=== PATIENT | female | born 1960 | race Caucasian/White ===

== ENCOUNTER 2022-08-21 16:12 | Inpatient (IN) ==
--- NOTE | 2022-08-21 16:56 | XRay Report ---
XR chest 1V portable CLINICAL HISTORY: Atypical chest pain. COMPARISON STUDY: Chest radiograph October 01, 2019. Chest CT October 10, 2016. FINDINGS: There is no pneumothorax or pleural effusion. Cardiomegaly is unchanged. Slight interstitia l prominence is noted. There is no consolidation to suggest pneumonia. A few linear densities favor a telectasis. IMPRESSION: Stable cardiomegaly. Interstitial prominence which may reflect pulmonary vascular conges tion. ACT 112: Negative or not required by law. Electronically signed by: Keanu Valverde M.D. 08/21/2022 4:55 PM
[2022-08-21 17:19] LABS: Basophils # (auto) 0.04 K/uL (0-0.2); Basophils % (auto) 0.3 %; Eosinophils # (auto) 0.01 K/uL (0-0.50); Eosinophils % (auto) 0.1 %; Hemoglobin 14.3 g/dl (12.0-16.0); Immature Granulocytes # (auto) 0.06 K/uL (0.00-0.02); Immature Granulocytes % (auto) 0.5 %; Lymphocytes # (auto) 1.89 K/uL (1.2-3.4); Mean Corpuscular Hemoglobin 30.2 pg (25.0-34.0); Mean Corpuscular Hgb Conc 34.9 g/dL (32.0-36.0); Mean Corpuscular Volume 86.5 fL (80.0-100.0); Mean Platelet Volume 10.3 fL (9.4-12.3); Monocytes # (auto) 0.48 K/uL (0.24-0.82); Monocytes % (auto) 3.8 %; Neutrophils # (auto) 10.14 K/uL (1.4-6.5); Neutrophils % (auto) 80.3 %; Platelet Count 281 K/uL (130-400); RDW Coefficient of Variation 13.2 % (11.5-14.5); RDW Standard Deviation 41.5 fL (36.4-46.3); Red Blood Count 4.74 M/uL (3.93-5.22); White Blood Count 12.62 K/ul (4.8-10.8)
[2022-08-21 17:31] LABS: Partial Thromboplastin Ratio 0.9; Partial Thromboplastin Time 25.2 Seconds (21.0-31.0); Prothrombin Time 10.4 Seconds (9.0-12.0)
[2022-08-21 17:51] LABS: Troponin I High Sensitivity 5.2 pg/ml (0-14)
[2022-08-21 17:56] LABS: Appearance Urine Clear (Clear); Bilirubin Urine Negative (Negative); Blood Urine Negative (Negative); Color Urine Yellow; Glucose Urine UA Negative (Negative); Ketones Urine Negative (Negative); Leukocyte Esterase Urine Negative (Negative); Nitrite Urine Negative (Negative); Protein Urine Negative (Negative); Specific Gravity Urine 1.009 (1.000-1.030); Urobilinogen Urine Negative (Negative)
[2022-08-21 18:00] LABS: Alanine Aminotransferase 18 U/L (7-52); Albumin Globulin Ratio 1.4 (0.9-2); Albumin Level 4.1 gm/dl (3.4-5.0); Alkaline Phosphatase 86 U/L (34-104); Anion Gap 8 (3-11); Aspartate Aminotransferase 16 U/L (13-39); BUN Creatinine Ratio 16.9 (10-20); Bilirubin,Total 1.4 mg/dl (0.2-1.0); Blood Urea Nitrogen 11 mg/dl (6-23); Calcium 9.2 mg/dl (8.5-10.1); Carbon Dioxide 26 mmol/L (21-32); Chloride 99 mmol/L (98-107); Est GFR (African American) 110.3 ml/min; Est GFR (Non-African American) 95.2 ml/min; Glucose 203 mg/dl (70-99(Fasting)); Lipase 16 U/L (11-82); Sodium 133 mmol/L (136-145); Total Protein 7.1 gm/dl (6.0-8.3)
[2022-08-21] MEDS ORDERED: ONDANSETRON INJ 2 MG/ML 2 ML VIAL IV STA (18:20)
[2022-08-21] MEDS ORDERED: OPTIRAY 350 100ml IV ONE (19:22)
--- NOTE | 2022-08-21 19:48 | Emergency Department Note ---
Impression & Plan SBO (small bowel obstruction) ED Provider Note CHIEF COMPLAINT: Abdominal pain x2 days HISTORY OF PRESENT ILLNESS: This 61-year-old female patient presents to the emergency department with complaints of mid abdominal pain that wraps around to the back bilaterally. The patient states the pain began 2 to 3 days ago and has been persistent. She has been nauseated and not able to tolerate much in the way of food or fluids. She has been vomiting. The patient has been taking 1000 mg of Tylenol every 4 hours to help with the pain. She feels as though she needs to have a bowel movement but has been unable to several enemas. Patient states diverticulitis does run in her family therefore she has been trying to maintain a clear liquid diet. She denies any difficulty with urination, blood in the stool or the emesis. She has not had any significant fevers. She has had one abdominal surgery in the past which was a hernia repair many years ago. REVIEW OF SYSTEMS: A review of systems was performed with positives and pertinent negatives listed in the history of present illness. 10 systems were reviewed and are otherwise negative. ALLERGIES: see below MEDICATIONS: see below PMH: see below SOCIAL HISTORY: see below DDx: Appendicitis, PID, infections, diverticulitis, UTI, obstruction, mesenteric ischemia, aortic pathology, inflammatory bowel disease, renal colic, PUD, pancreatitis, biliary pathology, hernia, volvulus, constipation, as well as other pathologies. PHYSICAL EXAM: Vital signs reviewed. General: Well-appearing 61 yo female, obese, in no significant distress. HEENT: No scleral icterus, PERRLA, neck supple. Atraumatic. Cardiovascular: Regular rate and rhythm, no extra sounds. Pulmonary: Clear to auscultation bilaterally, normal work of breathing. Abdomen: Soft, obese, diffusely tender, + tympany, nondistended, positive bowel sounds. Musculoskeletal: Atraumatic, no peripheral edema. Neurologic: Patient awake alert and oriented x 3, speech is clear Skin: Warm, dry, no rash EMERGENCY DEPARTMENT COURSE/MDM: Patient evaluated and appeared to be in some discomfort. IV access was obtained and laboratory work was drawn. The patient was hydrated with normal saline solution. She did receive IV Zofran for nausea. CT imaging of the abdomen pelvis was performed and reveals evidence of small bowel obstruction. Patient is not currently vomiting and does seem to be under good control with her n.p.o. status and IV hydration. General surgery was contacted and the patient was discussed with the medicine service for admission. MONITORING: An order for cardiac monitoring was placed and the patient is noted to be in a NSR at 68 beats per minute. RADIOLOGY: see below EKG: Normal sinus rhythm at 74 bpm, low voltage QRS, nonspecific T wave abnormality anterior leads. QTC is 437. Normal ST segments. No significant change from previous dated April 07, 2019. DISPOSITION: Admission Past Med/Surg History Medical History CAD (coronary artery disease) Depression with anxiety GERD (gastroesophageal reflux disease) HTN (hypertension) Hyperlipidemia Hypothyroidism Osteoarthritis Scoliosis Severe obstructive sleep apnea Stress incontinence Thyroid nodule Type 2 diabetes mellitus Surgical History History of appendectomy History of arthroscopy RT KNEE History of cardiac cath History of section History of colonoscopy History of elbow surgery RT History of herniorrhaphy INCISIONAL HERNIA (FROM SCAR) History of partial hysterectomy Hx of removal of cyst 11/12/18 in OR upper and lower back. Performed by Dr. Rachid Maldonado. Family History Uncle Family history of diabetes mellitus MATERNAL Stroke Uncle Family hx of colon cancer MATERNAL Mother Myocardial infarction Hypothyroidism Hypertension Colorectal cancer Father Alzheimer disease Parkinsons disease Dementia Grandfather (Paternal) Brain tumor Grandfather (Maternal) Bone cancer Sister Hypothyroidism Sister Hypothyroidism Breast cancer Aunt Breast cancer Denies family history of Ovarian cancer Prostate cancer Social History Smoking Status: Never smoker Second Hand Exposure: No; Hx Alcohol Use: No Hx Substance Use: No Preferred Language: Cook Islander Communication Ability: Effective Visual Impairment: No Limitations Hearing Ability: Normal Hoisting Machine Operator Required: No Beliefs That Will Affect Care: Methodist Methodist Beliefs: Sandro/Mennonite. marital status: Current Living Situation: Family current occupational status: unemployed Feels Safe at Home: Yes Childhood Exposure to Second-Hand Smoke: No Dental Care, Regularly: No Physical Activity Frequency: 1-2 Times per Week Seatbelt Use: always Sunscreen Use: Yes Assistive Devices: None Allergies Allergies Allergy/AdvReac Type Severity Reaction Status Date / Time pollen extracts Allergy Unknown Unknown Verified 08/21/22 20:27 tomato Allergy Unknown Unknown Verified 08/21/22 20:27 No Known Drug Allergies Allergy nkda Verified 08/21/22 20:27 Dust Allergy Unknown Unknown Uncoded 08/21/22 20:27 Home Meds Home Medications Medication Instructions Recorded Confirmed aspirin 81 mg tablet,delayed 81 mg PO DAILY 04/06/19 08/21/22 release (Aspir-) insulin NPH isoph U-100 human 100 10 - 15 unit subcut BID 03/21/22 08/21/22 unit/mL subcutaneous suspension (Novolin N NPH U-100 Insulin isophane) levothyroxine 125 mcg tablet 125 mcg PO DAILY 08/21/22 08/21/22 Previous Rx's Medication Instructions Recorded nitroglycerin 0.4 mg sublingual 0.4 mg sublingual Q5M PRN chest 07/26/20 tablet pain #30 tabs celecoxib 100 mg capsule (Celebrex) 100 mg PO BID #60 caps 09/28/21 rosuvastatin 20 mg tablet 20 mg PO DAILY #90 tabs 11/10/21 hydrochlorothiazide 12.5 mg tablet 12.5 mg PO DAILY #30 tabs 04/10/22 furosemide 20 mg tablet 20 mg PO QAM PRN edema #30 tabs 05/09/22 metformin 500 mg tablet 1,000 mg PO BID #120 tabs 05/18/22 Results & Data (ED) Vital Signs Vital Signs - 24 hr 08/21/22 16:28 08/21/22 19:34 08/21/22 19:37 Temperature 36.8 C Temperature Source Oral Pulse Rate 72 Pulse Rate [Apical] 68 Pulse Rhythm Regular Pulse Strength Normal Respiratory Rate 24 18 Respiratory Effort / Characteristics Non-Labored Spontaneous Respiratory Depth Normal Normal Blood Pressure 139/99 Blood Pressure [Right Arm] 157/71 H Blood Pressure Mean 112 Blood Pressure Mean [Right Arm] 99 Pulse Oximetry 96 93 93 Oxygen Delivery Method Room Air Room Air Room Air Sepsis Recent Fever Within 48 Hours No Sepsis New/Unexplained Change in Mental Status No Sepsis Action Taken by Nursing No Action Required Home Medications Current Medication List: was personally reviewed by me Laboratory Data Attestation: I reviewed the patient's lab results. Result diagrams: 08/22/22 08:45 08/23/22 06:40 Lab Results 08/21/22 08/21/22 08/21/22 Range/Units 17:00 17:00 17:00 WBC 12.62 H (4.8-10.8) K/ul RBC 4.74 (3.93-5.22) M/uL Hgb 14.3 (12.0-16.0) g/dl Hct 41.0 (34.1-44.9) % MCV 86.5 (80.0-100.0) fL MCH 30.2 (25.0-34.0) pg MCHC 34.9 (32.0-36.0) g/dL RDW Std Deviation 41.5 (36.4-46.3) fL RDW Coeff of Chetna 13.2 (11.5-14.5) % Plt Count 281 (130-400) K/uL MPV 10.3 (9.4-12.3) fL Immature Gran % (Auto) 0.5 % Neut % (Auto) 80.3 % Lymph % (Auto) 15.0 % [place] % (Auto) 3.8 % Eos % (Auto) 0.1 % Baso % (Auto) 0.3 % Neut # (Auto) 10.14 H (1.4-6.5) K/uL Lymph # (Auto) 1.89 (1.2-3.4) K/uL [place] # (Auto) 0.48 (0.24-0.82) K/uL Eos # (Auto) 0.01 (0-0.50) K/uL Baso # (Auto) 0.04 (0-0.2) K/uL Immature Gran # (Auto) 0.06 H (0.00-0.02) K/uL PT 10.4 (9.0-12.0) Seconds INR 1.0 (0.9-1.1) APTT 25.2 (21.0-31.0) Seconds PTT Ratio 0.9 Sodium 133 L (136-145) mmol/L Potassium 4.0 (3.5-5.1) mmol/L Chloride 99 (98-107) mmol/L Carbon Dioxide 26 (21-32) mmol/L Anion Gap 8 (3-11) BUN 11 (6-23) mg/dl Creatinine 0.65 (0.6-1.2) mg/dl Est Cr Clr Drug Dosing Not Reportable Est GFR ( Amer) 110.3 ml/min Est GFR (Non-Af Amer) 95.2 ml/min BUN/Creatinine Ratio 16.9 (10-20) Glucose 203 H (70-99(Fasting)) mg/dl Calcium 9.2 (8.5-10.1) mg/dl Total Bilirubin 1.4 H (0.2-1.0) mg/dl AST 16 (13-39) U/L ALT 18 (7-52) U/L Alkaline Phosphatase 86 (34-104) U/L Troponin I High Sens 5.2 (0-14) pg/ml Total Protein 7.1 (6.0-8.3) gm/dl Albumin 4.1 (3.4-5.0) gm/dl Globulin 3.0 (2.5-4.0) gm/dl Albumin/Globulin Ratio 1.4 (0.9-2) Lipase 16 (11-82) U/L Urine Color Urine Appearance (Clear) Urine pH (4.5-7.5) Ur Specific [place] (1.000-1.030) Urine Protein (Negative) Urine Glucose (UA) (Negative) Urine Ketones (Negative) Urine Blood (Negative) Urine Nitrite (Negative) Urine Bilirubin (Negative) Urine Urobilinogen (Negative) Ur Leukocyte Esterase (Negative) SARS-CoV-2, RNA, NAAT (NEGATIVE) 08/21/22 08/21/22 Range/Units 17:44 20:02 WBC (4.8-10.8) K/ul RBC (3.93-5.22) M/uL Hgb (12.0-16.0) g/dl Hct (34.1-44.9) % MCV (80.0-100.0) fL MCH (25.0-34.0) pg MCHC (32.0-36.0) g/dL RDW Std Deviation (36.4-46.3) fL RDW Coeff of Chetna (11.5-14.5) % Plt Count (130-400) K/uL MPV (9.4-12.3) fL Immature Gran % (Auto) % Neut % (Auto) % Lymph % (Auto) % [place] % (Auto) % Eos % (Auto) % Baso % (Auto) % Neut # (Auto) (1.4-6.5) K/uL Lymph # (Auto) (1.2-3.4) K/uL [place] # (Auto) (0.24-0.82) K/uL Eos # (Auto) (0-0.50) K/uL Baso # (Auto) (0-0.2) K/uL Immature Gran # (Auto) (0.00-0.02) K/uL PT (9.0-12.0) Seconds INR (0.9-1.1) APTT (21.0-31.0) Seconds PTT Ratio Sodium (136-145) mmol/L Potassium (3.5-5.1) mmol/L Chloride (98-107) mmol/L Carbon Dioxide (21-32) mmol/L Anion Gap (3-11) BUN (6-23) mg/dl Creatinine (0.6-1.2) mg/dl Est Cr Clr Drug Dosing Est GFR ( Amer) ml/min Est GFR (Non-Af Amer) ml/min BUN/Creatinine Ratio (10-20) Glucose (70-99(Fasting)) mg/dl Calcium (8.5-10.1) mg/dl Total Bilirubin (0.2-1.0) mg/dl AST (13-39) U/L ALT (7-52) U/L Alkaline Phosphatase (34-104) U/L Troponin I High Sens (0-14) pg/ml Total Protein (6.0-8.3) gm/dl Albumin (3.4-5.0) gm/dl Globulin (2.5-4.0) gm/dl Albumin/Globulin Ratio (0.9-2) Lipase (11-82) U/L Urine Color Yellow Urine Appearance Clear (Clear) Urine pH 7.0 (4.5-7.5) Ur Specific [place] 1.009 (1.000-1.030) Urine Protein Negative (Negative) Urine Glucose (UA) Negative (Negative) Urine Ketones Negative (Negative) Urine Blood Negative (Negative) Urine Nitrite Negative (Negative) Urine Bilirubin Negative (Negative) Urine Urobilinogen Negative (Negative) Ur Leukocyte Esterase Negative (Negative) SARS-CoV-2, RNA, NAAT POSITIVE A* (NEGATIVE) Administered Medications Discontinued Medications Heparin Sodium (Porcine) (Heparin Sod 5,000 Unit/0.5 Ml Vial) 5,000 units SQ Q12 MARY Stop: 09/21/22 20:59 Last Admin: 08/23/22 08:58 Dose: 5,000 units Documented By: Admin: 08/22/22 22:38 Dose: 5,000 units Documented By: LANRE Acetaminophen (Ofirmev) 1,000 mg in 100 mls @ 400 mls/hr IV Q8H PRN PRN Reason: Pain Stop: 08/24/22 22:43 Last Infusion: 08/22/22 23:15 Dose: 0 mls/hr Documented By: Admin: 08/22/22 22:53 Dose: 400 mls/hr Documented By: LANRE Lactated Ringer's (Lr) 1,000 mls @ 125 mls/hr IV .Q8H [facility] Stop: 09/20/22 22:43 Last Admin: 08/22/22 15:59 Dose: Not Given Documented By: Infusion: 08/22/22 15:28 Dose: 0 mls/hr Documented By: Admin: 08/22/22 06:42 Dose: 125 mls/hr Documented By: Infusion: 08/22/22 06:42 Dose: 125 mls/hr Documented By: Admin: 08/21/22 23:33 Dose: 125 mls/hr Documented By: LANRE Insulin Aspart (Insulin Aspart Per Unit) 0 units SC Q6 [facility] Stop: 09/20/22 22:59 Last Admin: 08/22/22 17:48 Dose: Not Given Documented By: Admin: 08/22/22 12:38 Dose: 1 units Documented By: KEYANNA Co-signed By: KATELIN Admin: 08/22/22 06:47 Dose: Not Given Documented By: LANRE Co-signed By: ERI Admin: 08/22/22 00:16 Dose: 2 units Documented By: LANRE Co-signed By: PATRICIA Insulin Aspart (Insulin Aspart Per Unit) 0 units SC ACHS [facility] Stop: 09/21/22 22:30 Last Admin: 08/23/22 12:53 Dose: 3 units Documented By: KEYANNA Co-signed By: OLMAN Admin: 08/23/22 08:57 Dose: 3 units Documented By: KEYANNA Co-signed By: [facility] Admin: 08/22/22 23:14 Dose: Not Given Documented By: LANRE Co-signed By: YELENA Insulin Glargine (Lantus Per Unit Charge) 5 units SQ BID [facility] Stop: 09/20/22 22:59 Last Admin: 08/23/22 08:58 Dose: 5 units Documented By: KEYANNA Co-signed By: SHELLIE Admin: 08/22/22 22:37 Dose: 5 units Documented By: LANRE Co-signed By: YELENA Admin: 08/22/22 09:00 Dose: 5 units Documented By: KEYANNA Co-signed By: DELFINO Admin: 08/22/22 00:17 Dose: 5 units Documented By: LANRE Co-signed By: PATRICIA Ioversol (Optiray 350 100ml) 84 ml IV ONCE ONE Stop: 08/21/22 19:23 Last Admin: 08/21/22 19:22 Dose: 84 ml Documented By: HARVEY Levothyroxine Sodium (Levothyroxine Sodium 125 Mcg Tablet) 125 mcg PO DAILYBB [facility] Stop: 09/21/22 06:29 Last Admin: 08/23/22 06:28 Dose: 125 mcg Documented By: Admin: 08/22/22 06:40 Dose: 125 mcg Documented By: LANRE Morphine Sulfate (Morphine Sulfate 2 Mg/Ml [place]) 1 mg IV Q4H PRN PRN Reason: Pain 8+/10 Stop: 09/04/22 22:43 Last Admin: 08/21/22 23:55 Dose: 1 mg Documented By: LANRE Ondansetron HCl (Ondansetron Inj 2 Mg/Ml 2 Ml Vial) 4 mg IV NOW STA Stop: 08/21/22 18:21 Last Admin: 08/21/22 18:46 Dose: 4 mg Documented By: ETHAN Ondansetron HCl (Ondansetron Inj 2 Mg/Ml 2 Ml Vial) 4 mg IV Q6H PRN PRN Reason: Nausea And Vomiting Stop: 09/20/22 22:43 Last Admin: 08/21/22 23:55 Dose: 4 mg Documented By: LANRE Imaging Data Radiologist's Impression: Chest X-Ray 08/21/22 16:37 XR chest 1V portable CLINICAL HISTORY: Atypical chest pain. COMPARISON STUDY: Chest radiograph October 01, 2019. Chest CT October 10 16. FINDINGS: There is no pneumothorax or pleural effusion. Cardiomegaly is unchanged. Slight interstitial prominence is noted. There is no consolidation to suggest pneumonia. A few linear densities favor atelectasis. IMPRESSION: Stable cardiomegaly. Interstitial prominence which may reflect pulmonary vascular congestion. ACT 112: Negative or not required by law. Electronically signed by: Keanu Valverde M.D. 08/21/2022 4:55 PM Abdomen/Pelvis CT 08/21/22 18:[address] WITH IV CONTRAST CT DOSE: 2880.04 mGycm HISTORY: Generalized abdominal pain. Bowel obstruction TECHNIQUE: Multiaxial CT images of the abdomen and pelvis were performed following the use of intravenous contrast. A dose lowering technique was utilized adhering to the principles of ALARA. COMPARISON STUDY: None. FINDINGS: There is suboptimal evaluation of the abdomen and pelvis due to the patient's large body habitus abutting the gantry. The lung bases are clear. No pneumoperitoneum. No pneumatosis. No suspicious lytic or blastic osseous lesions. There are few small midline lower abdominal wall fat-containing hernias. The bladder and uterus are unremarkable. There is trace pelvic free fluid. Colonic diverticulosis. No evidence for acute diverticulitis. Multiple dilated gas and fluid-filled loops of small bowel seen throughout the abdomen. These measure up to 4.5 cm in diameter. There are decompressed distal bowel loops. The exact transition point is difficult to identify due to the streak artifact but likely resides within the left lower quadrant on image 395 at the expected location of the distal jejunum. This is consistent with a small bowel obstruction. No retroperitoneal lymphadenopathy. The liver, adrenal glands, pancreas, and gallbladder are unremarkable. Calcified plaque within the normal caliber abdominal aorta. Multiple bilateral peripelvic renal cysts are noted. No hydronephrosis. A few punctate calcified granulomas within the spleen. IMPRESSION: 1. Multiple dilated gas and fluid-filled loops of small bowel seen throughout the abdomen with the transition point likely located within the left lower quadrant consistent with a small bowel obstruction. 2. Trace pelvic free fluid. 3. Colonic diverticulosis. No evidence for acute diverticulitis. 4. Additional findings as described above. ACT 112: Negative or not required by law. Electronically signed by: Partha Montana M.D. 08/21/2022 7:46 PM Blood Pressure Blood Pressure Findings: Elevated blood pressure Blood Pressure Disposition: further management by hospitalist Discharge Plan Visit Data Chief Complaint: Abdominal Pain Stated Complaint: STOMACH PAIN, FEVER,BACK PAIN, VOMIT ED Provider: Heidi Carrington Discharge Problem: SBO (small bowel obstruction) Patient Disposition: Admitted As Inpatient Discharge Instructions Interventions: ED Discharge Assessment Last Done: 08/21/22 22:22
--- NOTE | 2022-08-21 19:49 | CT Scan Report ---
ABDOMEN AND PELVIS CT WITH IV CONTRAST CT DOSE: 2880.04 mGycm HISTORY: Generalized abdominal pain. Bowel obstruction TECHNIQUE: Multiaxial CT images of the abdomen and pelvis were performed following the use of intrave nous contrast. A dose lowering technique was utilized adhering to the principles of ALARA. COMPARISON STUDY: None. FINDINGS: There is suboptimal evaluation of the abdomen and pelvis due to the patient's large body mills bitus abutting the gantry. The lung bases are clear. No pneumoperitoneum. No pneumatosis. No suspicio us lytic or blastic osseous lesions. There are few small midline lower abdominal wall fat-containing hernias. The bladder and uterus are unremarkable. There is trace pelvic free fluid. Colonic diverticu losis. No evidence for acute diverticulitis. Multiple dilated gas and fluid-filled loops of small bow el seen throughout the abdomen. These measure up to 4.5 cm in diameter. There are decompressed distal bowel loops. The exact transition point is difficult to identify due to the streak artifact but like ly resides within the left lower quadrant on image 395 at the expected location of the distal jejunum . This is consistent with a small bowel obstruction. No retroperitoneal lymphadenopathy. The liver, a drenal glands, pancreas, and gallbladder are unremarkable. Calcified plaque within the normal caliber abdominal aorta. Multiple bilateral peripelvic renal cysts are noted. No hydronephrosis. A few punct ate calcified granulomas within the spleen. IMPRESSION: 1. Multiple dilated gas and fluid-filled loops of small bowel seen throughout the abdomen with the tr ansition point likely located within the left lower quadrant consistent with a small bowel obstructio n. 2. Trace pelvic free fluid. 3. Colonic diverticulosis. No evidence for acute diverticulitis. 4. Additional findings as described above. ACT 112: Negative or not required by law. Electronically signed by: Partha Montana M.D. 08/21/2022 7:46 PM
--- NOTE | 2022-08-21 20:27 | Surgery Consultation ---
Date of Consultation August 21, 2022 Assessment & Plan (1) Small bowel obstruction: The patient is being mated on the hospitalist service. We recommend proceeding as follows: Provide analgesics provide antiemetics Implement n.p.o. status Provide IV fluid for hydration The patient has not had any emesis in approximately 6 hours. Due to this fact and the fact that her abdominal exam is essentially benign at this time I feel we can withhold on placing NG tube at this time, however I did discuss with the patient that if she has any further emesis placing an NG tube will may be required. Explained to the patient the nature of small bowel obstruction and that we will not build advance her diet until she has further improvement of her abdominal exam and her bowel function returns. I did explain to her that once we are able to advance her diet we will likely do so beginning with clear liquid s and the timing of this is yet to be determined Additional recommendations be forthcoming based on her clinical course as it unfolds History of Present Illness Reason for Consultation: Small bowel obstruction History of Present Illness This is a 61-year-old female who presented to [facility] emergency department secondary to abdominal pain that began yesterday. She notes that she has generalized abdominal pain without modifying factors. She has had associated nausea and vomiting. Patient notes that she has had prior abdominal surgery in the form of a ventral hernia performed in 2005 and she believes this was done at [facility]. Patient says that her most recent bowel movement was approximately 3 days ago but she is unsure of the exact timing. She notes that since her symptomatology began she has not been able to pass any flatus. She does note that her most recent emesis was approximately 2:00 PM today when she drank some juice. In the emergency department the patient had labs and imaging which I independent reviewed. Chest x-ray did not show any evidence of pneumonia. Patient underwent a CT scan of the abdomen pelvis that showed multiple dilated gas and fluid-filled loops of small bowel concerning for a small bowel obstruction. There was a transition point noted in the left lower quadrant. Several small lower abdominal wall fat-containing hernias were noted. There is no evidence of pneumoperitoneum or pneumatosis. Labs include a CBC her white blood cell count was 12.6. Hemoglobin, hematocrit, and platelet count were normal. Chemistry profile showed sodium was 133. Potassium, BUN, and creatinine were normal. Patient did have an elevated total bilirubin at 1.4 but transaminases, alkaline phosphatase, and lipase were nonelevated urinalysis was not indicative of infection. A COVID test was noted to be negative. At the time of my interview she was resting comfortably in bed and she was in no distress. Allergies Allergy/AdvReac Type Severity Reaction Status Date / Time pollen extracts Allergy Unknown Unknown Verified 08/21/22 20:27 tomato Allergy Unknown Unknown Verified 08/21/22 20:27 No Known Drug Allergies Allergy nkda Verified 08/21/22 20:27 Dust Allergy Unknown Unknown Uncoded 08/21/22 20:27 Home Medications Medication Instructions Recorded Confirmed Type aspirin 81 mg tablet,delayed 81 mg PO DAILY 04/06/19 08/21/22 History release (Aspir-) nitroglycerin 0.4 mg sublingual 0.4 mg sublingual Q5M PRN chest 07/26/20 08/21/22 Rx tablet pain #30 tabs celecoxib 100 mg capsule (Celebrex) 100 mg PO BID #60 caps 09/28/21 08/21/22 Rx rosuvastatin 20 mg tablet 20 mg PO DAILY #90 tabs 11/10/21 08/21/22 Rx insulin NPH isoph U-100 human 100 10 - 15 unit subcut BID 03/21/22 08/21/22 History unit/mL subcutaneous suspension (Novolin N NPH U-100 Insulin isophane) hydrochlorothiazide 12.5 mg tablet 12.5 mg PO DAILY #30 tabs 04/10/22 08/21/22 Rx furosemide 20 mg tablet 20 mg PO QAM PRN edema #30 tabs 05/09/22 08/21/22 Rx metformin 500 mg tablet 1,000 mg PO BID #120 tabs 05/18/22 08/21/22 Rx levothyroxine 125 mcg tablet 125 mcg PO DAILY 08/21/22 08/21/22 History Patient History Medical History CAD (coronary artery disease) Depression with anxiety GERD (gastroesophageal reflux disease) HTN (hypertension) Hyperlipidemia Hypothyroidism Osteoarthritis Scoliosis Severe obstructive sleep apnea Stress incontinence Thyroid nodule Type 2 diabetes mellitus Surgical History History of appendectomy History of arthroscopy RT KNEE History of cardiac cath History of section History of colonoscopy History of elbow surgery RT History of herniorrhaphy INCISIONAL HERNIA (FROM SCAR) History of partial hysterectomy Hx of removal of cyst 11/12/18 in OR upper and lower back. Performed by Dr. Rachid Maldonado. Family History Uncle Family history of diabetes mellitus MATERNAL Stroke Uncle Family hx of colon cancer MATERNAL Mother Myocardial infarction Hypothyroidism Hypertension Colorectal cancer Father Alzheimer disease Parkinsons disease Dementia Grandfather (Paternal) Brain tumor Grandfather (Maternal) Bone cancer Sister Hypothyroidism Sister Hypothyroidism Breast cancer Aunt Breast cancer Denies family history of Ovarian cancer Prostate cancer Social History Smoking Status: Never smoker Second Hand Exposure: No; Do You Dip or Chew Tobacco: No; Tobacco Cessation Education Requested by Patient: No Hx Alcohol Use: No Hx Substance Use: No Preferred Language: Ukrainian Communication Ability: Effective Visual Impairment: No Limitations Hearing Ability: Normal Financial Institution Treasurer Required: No Beliefs That Will Affect Care: Orthodox Orthodox Beliefs: Sandro/Mennonite. marital status: Current Living Situation: Family current occupational status: unemployed Other Information That Helps Us Care for You: No Feels Safe at Home: Yes Safety Concerns: Feels Safe At This Time Childhood Exposure to Second-Hand Smoke: No Dental Care, Regularly: No Physical Activity Frequency: 1-2 Times per Week Seatbelt Use: always Sunscreen Use: Yes Assistive Devices: Denture - Upper and Glasses Review of Systems Constitutional: no fever and no chills Eyes: + corrective lenses Ear, Nose, Mouth, Throat: no ear pain Respiratory: no cough and no dyspnea Cardiovascular: no chest pain Gastrointestinal: + abdominal pain, + nausea and + vomiting Genitourinary: no dysuria Musculoskeletal: no back pain Integumentary: no rash Neurologic: no localized weakness Physical Exam Constitutional: WD/WN, vitals as above + obese Eyes: no corneal abnormality Wears glasses ENMT: Ears: no hearing impairment and no external ear abnormality Mouth: no oropharynx abnormality Neck: trachea midline Respiratory: normal respiratory effort; no respiratory distress and no labored breathing Cardiovascular: Rate/Rhythm: regular rate and regular rhythm Gastrointestinal (Abdomen): Abdomen is rotund but soft. It is nondistended and nonrigid. There is no tympany to percussion. Bowel sounds are present. Patient had a well-healed midline incision just above the symphysis pubis. At the time of my exam the patient had minimal to no tenderness with palpation and there is no rebound tenderness or guarding. Musculoskeletal: No calf tenderness Skin: no rashes Neurologic: moves all extremities Psychiatric: A+Ox3, euthymic affect Results & Data ([facility]) Vital Signs (Past 12 Hours) Vital Signs Temp Pulse Pulse Resp BP BP Pulse Ox 08/21/22 19:37 93 08/21/22 19:34 68 18 157/71 H 93 08/21/22 16:28 36.8 C 72 24 139/99 96 O2 Del Method 08/21/22 19:37 Room Air 08/21/22 19:34 Room Air 08/21/22 16:28 Room Air PG Care Time/CCT Total # of Minutes Spent Total Time Spent with Patient: Total time spent is greater than 50% in coordination of care (as documented) at patient's floor/unit and/or counseling patient: Coding Level of Care Code 69973 Inpt Consult Level 5 Diagnoses Small bowel obstruction K56.609
--- NOTE | 2022-08-21 20:36 | History & Physical Report ---
Date of Service August 21, 2022 Assessment & Plan (1) Small bowel obstruction: Plan: 61 yo F with PMH IDDM2, morbid obesity, HTN, HLD, hypothyroidism, CAD, GERD, previous hernia repair presenting with abdominal pain. -General surgery consulted- recommending conservative management at present -Not placing NG tube for now -NPO except medications -LR at 125 cc/hr -Last echocardiogram 2018- EF 50-55% -Euvolemic status at this time -Measure I's and O's -Zofran PRN for nausea -Pain control with Tylenol 1000 mg IV q8h PRN, morphine 1 mg IV q4h PRN (2) COVID: Plan: -Pt with stable respiratory status at this time, saturating well on RA -Will defer starting remdesivir and/or dexamethasone at present -Supplemental O2 as needed, goal > 93% (3) Uncontrolled type 2 diabetes mellitus: Plan: -Last A1C of 7.0% in 12/2021 -Hold home metformin, NPH -Lantus 5u BID, ISS ordered (4) Hyperlipidemia: Plan: -Continue home rosuvastatin (5) HTN (hypertension): Plan: -Holding home thiazide -Monitor BP, stable at this time (6) Hypothyroidism: Plan: -Continue home levothyroxine (7) CAD (coronary artery disease): Plan: -Continue aspirin, rosuvastatin Plan FENGI: NPO except medications, sips Code status: Full DVT ppx: SCDs, aspirin Isolation: COVID Dispo: Medical/surgical History of Present Illness Chief Complaint: Abdominal pain Primary Care Provider: Stella Tineo MD 61 yo F with PMH IDDM2, morbid obesity, HTN, HLD, hypothyroidism, CAD, GERD, previous hernia repair presenting with abdominal pain. Pt reports onset of generalized diffuse abdominal pain on 08/20 AM- 04/06, sharp, radiation to back, associated with nausea and 3x NBNB emesis. States enema y and today has not produced BM, unable to recall last BM but thinks it may have been on 08/18. Tylenol does not provide any pain relief. Since pain onset, pt has only been drinking liquids which she is tolerating well. Believes she may have passed small flatus earlier today. Pt arrived to ED hemodynamically stable. WBC 12.6, Na 133, glucose 203. EKG unremarkable. CXR with stable cardiomegaly, mild pulmonary vascular congestion. CTAP with multiple dilated gas and fluid-filled loops of small bowel with transition point likely located within LLQ. Pt given Zofran in ED. Allergies Allergy/AdvReac Type Severity Reaction Status Date / Time pollen extracts Allergy Unknown Unknown Verified 08/21/22 20:27 tomato Allergy Unknown Unknown Verified 08/21/22 20:27 No Known Drug Allergies Allergy nkda Verified 08/21/22 20:27 Dust Allergy Unknown Unknown Uncoded 08/21/22 20:27 Home Medications Medication Instructions Recorded Confirmed Type aspirin 81 mg tablet,delayed 81 mg PO DAILY 04/06/19 08/21/22 History release (Aspir-) nitroglycerin 0.4 mg sublingual 0.4 mg sublingual Q5M PRN chest 07/26/20 08/21/22 Rx tablet pain #30 tabs celecoxib 100 mg capsule (Celebrex) 100 mg PO BID #60 caps 09/28/21 08/21/22 Rx rosuvastatin 20 mg tablet 20 mg PO DAILY #90 tabs 11/10/21 08/21/22 Rx insulin NPH isoph U-100 human 100 10 - 15 unit subcut BID 03/21/22 08/21/22 History unit/mL subcutaneous suspension (Novolin N NPH U-100 Insulin isophane) hydrochlorothiazide 12.5 mg tablet 12.5 mg PO DAILY #30 tabs 04/10/22 08/21/22 Rx furosemide 20 mg tablet 20 mg PO QAM PRN edema #30 tabs 05/09/22 08/21/22 Rx metformin 500 mg tablet 1,000 mg PO BID #120 tabs 05/18/22 08/21/22 Rx levothyroxine 125 mcg tablet 125 mcg PO DAILY 08/21/22 08/21/22 History Past Med/Surg History Medical History CAD (coronary artery disease) Depression with anxiety GERD (gastroesophageal reflux disease) HTN (hypertension) Hyperlipidemia Hypothyroidism Osteoarthritis Scoliosis Severe obstructive sleep apnea Stress incontinence Thyroid nodule Type 2 diabetes mellitus Surgical History History of appendectomy History of arthroscopy RT KNEE History of cardiac cath History of section History of colonoscopy History of elbow surgery RT History of herniorrhaphy INCISIONAL HERNIA (FROM SCAR) History of partial hysterectomy Hx of removal of cyst 11/12/18 in OR upper and lower back. Performed by Dr. Rachid Maldonado. Family History Uncle Family history of diabetes mellitus MATERNAL Stroke Uncle Family hx of colon cancer MATERNAL Mother Myocardial infarction Hypothyroidism Hypertension Colorectal cancer Father Alzheimer disease Parkinsons disease Dementia Grandfather (Paternal) Brain tumor Grandfather (Maternal) Bone cancer Sister Hypothyroidism Sister Hypothyroidism Breast cancer Aunt Breast cancer Denies family history of Ovarian cancer Prostate cancer Social History Smoking Status: Never smoker Second Hand Exposure: No; Do You Dip or Chew Tobacco: No; Tobacco Cessation Education Requested by Patient: No Hx Alcohol Use: No Hx Substance Use: No Preferred Language: Czech Communication Ability: Effective Visual Impairment: No Limitations Hearing Ability: Normal Slitter Service And Setter Required: No Beliefs That Will Affect Care: Tenriism Tenriism Beliefs: Sandro/Mennonite. marital status: Current Living Situation: Family current occupational status: unemployed Other Information That Helps Us Care for You: No Feels Safe at Home: Yes Safety Concerns: Feels Safe At This Time Childhood Exposure to Second-Hand Smoke: No Dental Care, Regularly: No Physical Activity Frequency: 1-2 Times per Week Seatbelt Use: always Sunscreen Use: Yes Assistive Devices: None Review of Systems Review of Systems: Per subjective Physical Exam Physical Exam: General: Well-appearing, no acute distress HEENT: Mildly dry mucous membranes, anicteric sclerae, no JVD b/l, no lymphadenopathy CV: RRR, normal S1 and S2, no murmurs noted, trace non-pitting edema of b/l LE Resp: CTAB, unlabored respirations Abd: soft, slight distension, mild tympany to percussion, mild tenderness to palpation along epigastrium, higher-pitched bowel sounds, no guarding or rebound MSK: normal bulk and tone of b/l UE and LE Neuro: AOx3, no focal motor or sensory deficits Skin: warm, dry, no rashes Results & Data Results & Data ([facility]) Vital Signs (Past 12 Hours) Vital Signs Temp Pulse Pulse Resp BP BP Pulse Ox 08/21/22 19:37 93 08/21/22 19:34 68 18 157/71 H 93 08/21/22 16:28 36.8 C 72 24 139/99 96 O2 Del Method 08/21/22 19:37 Room Air 08/21/22 19:34 Room Air 08/21/22 16:28 Room Air Supervising Physician Co-Signing Physician Notes Attending addendum: I have physically seen this patient, have supervised the medical residents activities, and agree with the H&P unless as otherwise noted. Assessment and Plan: Small bowel obstruction- N.p.o. LR at 125 mils per hour Zofran 4 mg IV every 6 hours as needed Famotidine 20 mg IV every 8 12 hours Acetaminophen 1 g IV every 8 hours as needed mild pain or fever Morphine sulfate 1 mg IV every 4 hours as needed moderate to severe pain General surgery aware COVID-19 infection- Asymptomatic, therefore no active treatment needed, and less oxygenation status changes Diabetes mellitus- Hold metformin Place on Lantus and insulin sliding scale as noted Remaining orders and notations as noted Resident Activity Tracking Resident Involvement: Resident Care Provided Care Provided: Adult Hospital Medicine (1) CAD (coronary artery disease) Associated angina: without angina Coronary Disease-Associated Artery/Lesion type: [place] artery [place] vs. transplanted heart: [place] heart Qualified Code(s): I25.10 - Atherosclerotic heart disease of [place] coronary artery without angina pectoris (2) HTN (hypertension) Hypertension type: unspecified Qualified Code(s): I10 - Essential (primary) hypertension
[2022-08-21] MEDS ORDERED: GLUCOSE 40% GEL 15 GM TUBE PO PRN (22:44)
[2022-08-21] MEDS ORDERED: ONDANSETRON INJ 2 MG/ML 2 ML VIAL IV PRN (22:44)
[2022-08-21] MEDS ORDERED: CARBOHYDRATES FOR HYPOGLYCEMIA PO PRN (22:44)
[2022-08-21] MEDS ORDERED: GLUCAGON FOR INJ 1 MG VIAL SQ PRN (22:44)
[2022-08-21] MEDS ORDERED: MoRPHine SULFATE 2 MG/ML CARP IV PRN (22:44)
[2022-08-21] MEDS ORDERED: GLUCOSE 10 TAB/TUBE PO PRN (22:44)
[2022-08-21] MEDS ORDERED: DEXTROSE 50% 50 ML SYRINGE IV PRN (22:44)
[2022-08-21] MEDS ORDERED: ACETAMINOPHEN 1,000 MG/100 ML VIAL IV PRN (22:44)
[2022-08-21] MEDS: LACTATED RINGER'S 1,000 ML IV SCH (23:33)
[2022-08-22] MEDS: INSULIN ASPART PER UNIT SC SCH ×5 (00:16→23:14)
[2022-08-22] MEDS: LANTUS PER UNIT CHARGE SQ SCH ×3 (00:17→22:37)
[2022-08-22] MEDS: LEVOTHYROXINE SODIUM 125 MCG TABLET PO SCH (06:40)
[2022-08-22] MEDS: LACTATED RINGER'S 1,000 ML IV SCH ×2 (06:42→15:59)
[2022-08-22 09:03] LABS: Hematocrit (blood only) 39.1 % (34.1-44.9); Hemoglobin 13.3 g/dl (12.0-16.0); Mean Corpuscular Hemoglobin 30.4 pg (25.0-34.0); Mean Corpuscular Volume 89.3 fL (80.0-100.0); Mean Platelet Volume 10.1 fL (9.4-12.3); Platelet Count 248 K/uL (130-400); RDW Coefficient of Variation 13.4 % (11.5-14.5); RDW Standard Deviation 44.2 fL (36.4-46.3); Red Blood Count 4.38 M/uL (3.93-5.22); White Blood Count 8.62 K/ul (4.8-10.8)
[2022-08-22 09:18] LABS: BUN Creatinine Ratio 16.4 (10-20); Calcium 8.5 mg/dl (8.5-10.1); Creatinine Clr Calc Pharmacy 143.9 ml/min; Est GFR (African American) 109.2 ml/min; Est GFR (Non-African American) 94.2 ml/min; Potassium 3.9 mmol/L (3.5-5.1)
--- NOTE | 2022-08-22 09:18 | Hospitalist Progress Note ---
Date of Service August 22, 2022 Assessment & Plan (1) Small bowel obstruction: Plan: CT A/P with evidence of small bowel obstruction with transition point in LLQ. SBO is likely due to post-surgical adhesions in this patient with multiple abdominal surgeries in the past. - N/V/abdominal pain resolved since coming to hospital, without need for PRN pain/anti-emetic meds --> improving - Surgery on board - recommend to maintain NPO (sips/meds) and advance ad ginger (no NGT or surgical intervention) - continue LR at 125 cc/hr -Zofran PRN for nausea -Pain control with Tylenol 1000 mg IV q8h PRN, morphine 1 mg IV q4h PRN for breakthrough (2) COVID: Plan: Asymptomatic. Patient unvaccinated and unsure if she has had COVID-19 before. - monitor for symptoms (3) Uncontrolled type 2 diabetes mellitus: Plan: A1c 7.5 as of 08/22/2022. -Hold home metformin, NPH -Lantus 5u BID, ISS while hospitalized (4) Hyperlipidemia: Plan: -Continue home rosuvastatin (5) HTN (hypertension): Plan: -Holding home thiazide for now -Monitor BP, stable at this time (6) Hypothyroidism: Plan: -Continue home levothyroxine (7) CAD (coronary artery disease): Plan: -Continue aspirin, rosuvastatin Plan FENGI: NPO except medications, sips; LR @125cc/hr Code status: Full DVT ppx: SCDs Isolation: airborne (COVID) Dispo: Medical/surgical Admission and Anticipated Discharge Date Admission Date: August 21, 2022 Supervising Physician Co-Signing Physician Notes I personally examined the patient and verified all martinez points of history and exam, discussed case, and agree with decision making with Dr Brice pain gone feeling hungry vitals noted nad heent nc at mmm abd soft nd nt no guarding/rebound SBO - improving. clears, advance as tolerated DVT proph - heparin SQ Subjective Patient reports acute-onset lower abdominal pain on Saturday that was not responsive to ~bowel rest (just several trials of juice/water) and PRN Tylenol. No nausea/vomiting or abdominal pain since arrived in ED yesterday. Passing gas this morning. Tolerating sips of water without symptoms. Still no appetite. Feels much better overall. Reports h/o , inferior abdominal wall hernia repair, and hernia repair revision with mesh. Review of Systems Review of Systems: All systems reviewed & are unremarkable except as noted in HPI & below Physical Exam Physical Exam: General: A&Ox3. NAD. Cooperative. Morbidly obese. HEENT: Atraumatic, normocephalic. Pulm: CTAB A&P. -wheezes, -rales, -rhonchi. Symmetrical chest rise. No increase work of breathing. No respiratory distress. Cardiac: diminished heart sounds due to body habitus but appears RRR without m/r/g. Radial pulses intact and symmetrical. No LE edema. Abdominal: soft, non-tender, non-distended, normoactive BS x 4. Skin: warm, dry, no rash Results & Data Results & Data ([facility]) Vital Signs (Past 12 Hours) Vital Signs Temp Pulse Pulse Pulse Resp BP BP 08/22/22 07:53 36.8 C 75 18 08/21/22 22:45 08/21/22 22:45 08/21/22 22:45 37 C 79 16 156/81 H 08/21/22 22:45 37 C 79 16 156/81 H 08/21/22 22:22 71 18 161/72 H 08/21/22 22:15 71 18 BP Pulse Ox O2 Del Method 08/22/22 07:53 107/59 L 93 Room Air 08/21/22 22:45 Room Air 08/21/22 22:45 Room Air 08/21/22 22:45 93 Room Air 08/21/22 22:45 93 Room Air 08/21/22 22:22 94 Room Air 08/21/22 22:15 161/72 H 94 Room Air Resident Activity Tracking Resident Involvement: Resident Care Provided Care Provided: Adult Hospital Medicine (1) CAD (coronary artery disease) Associated angina: without angina Coronary Disease-Associated Artery/Lesion type: [place] artery [place] vs. transplanted heart: [place] heart Qualified Code(s): I25.10 - Atherosclerotic heart disease of [place] coronary artery without angina pectoris (2) HTN (hypertension) Hypertension type: unspecified Qualified Code(s): I10 - Essential (primary) hypertension
[2022-08-22 10:16] LABS: Estimated Average Glucose 169 mg/dl; Hemoglobin A1C 7.5 % (4.5-5.6)
--- NOTE | 2022-08-22 10:59 | Surgery Progress Note ---
Date of Service August 22, 2022 Assessment & Plan (1) Small bowel obstruction: Plan: Clinically improving. We will recheck KUB today. No need for NG tube at this time as she is not nauseated or vomiting. We will continue to follow along (2) COVID: (3) Uncontrolled type 2 diabetes mellitus: (4) HTN (hypertension): (5) CAD (coronary artery disease): Admission and Anticipated Discharge Date Admission Date: August 21, 2022 Subjective Patient seen. Feeling better. She is starting to pass some gas. No pain or nausea currently Physical Exam Constitutional: WD/WN, vitals as above no acute distress and not ill appearing Eyes: PERRL, conjunctivae normal, anicteric sclerae EOM intact bilaterally ENMT: external ear and nose normal, oropharynx normal Ears: no hearing impairment Neck: trachea midline, no thyromegaly Respiratory: normal respiratory effort; no respiratory distress and does not use accessory muscles Cardiovascular: Rate/Rhythm: regular rate and regular rhythm Gastrointestinal (Abdomen): Soft. Difficult exam secondary to patient body habitus. No palpable abnormalities. Nontender. Skin: no rashes, warm and dry Psychiatric: Orientation: alert, oriented x 3 and cooperative Results & Data ([facility]) Vital Signs (Past 12 Hours) Vital Signs Temp Pulse Resp BP Pulse Ox O2 Del Method 08/22/22 07:53 36.8 C 75 18 107/59 L 93 Room Air PG Care Time/CCT Total # of Minutes Spent Total Time Spent with Patient: Total time spent is greater than 50% in coordination of care (as documented) at patient's floor/unit and/or counseling patient: Coding Level of Care Code 44792 Subseq Hosp Care Lvl 3 Diagnoses Small bowel obstruction K56.609 COVID U07.1 Uncontrolled type 2 diabetes mellitus E11.65 HTN (hypertension) I10 Hypertension type: unspecified CAD (coronary artery disease) I25.10 Coronary Disease-Associated Artery/Lesion type: [place] artery [place] vs. transplanted heart: [place] heart Associated angina: without angina (1) HTN (hypertension) Hypertension type: unspecified Qualified Code(s): I10 - Essential (primary) h ypertension (2) CAD (coronary artery disease) Coronary Disease-Associated Artery/Lesion type: [place] artery [place] vs. transplanted heart: [place] heart Associated angina: without angina Qualified C ode(s): I25.10 - Atherosclerotic heart disease of [place] coronary artery without angina pectoris
--- NOTE | 2022-08-22 14:33 | XRay Report ---
KUB CLINICAL HISTORY: Small bowel obstruction. COMPARISON STUDY: CT of the abdomen and pelvis August 21, 2022. FINDINGS: Several loops of mildly dilated small bowel are again noted. Findings are similar to prior CT. Gas within portions of the colon and rectum is noted. No radiographic evidence for pneumatosis. S ensitivity for detection of free air is diminished on this supine exam but none is identified. IMPRESSION: Findings suggestive of a persistent partial small bowel obstruction. ACT 112: Negative or not required by law. Electronically signed by: Keanu Valverde M.D. 08/22/2022 2:31 PM
--- NOTE | 2022-08-22 20:35 | Billing Data ---
Date of Service August 22, 2022 Coding Level of Care Code 20071 Initial Inpt Care Lvl 3
[2022-08-22] MEDS: HEPARIN SOD 5,000 UNIT/0.5 ML VIAL SQ SCH (22:38)
--- NOTE | 2022-08-23 05:04 | Electrocardiogram Report ---
Test Reason : Blood Pressure : / mmHG Vent. Rate : 074 BPM Atrial Rate : 074 BPM P-R Int : 178 ms QRS Dur : 082 ms QT Int : 394 ms P-R-T Axes : 029 003 020 degrees QTc Int : 437 ms Normal sinus rhythm Low voltage QRS Nonspecific T wave abnormality Abnormal ECG When compared with ECG of 07-APR-2019 09:09, No significant change was found Confirmed by Abram Mauricio ([id number]) on 08/23/2022 5:04:04 AM Referred By: REFERRED SELF Confirmed By:Abram Mauricio
[2022-08-23] MEDS: LEVOTHYROXINE SODIUM 125 MCG TABLET PO SCH (06:28)
--- NOTE | 2022-08-23 07:19 | Hospitalist Progress Note ---
Date of Service August 23, 2022 Assessment & Plan (1) Small bowel obstruction: Plan: CT A/P with evidence of small bowel obstruction with transition point in LLQ. SBO is likely due to post-surgical adhesions in this patient with multiple abdominal surgeries in the past. - N/V/abdominal pain resolved since coming to hospital, without need for PRN pain/anti-emetic meds --> improving - Surgery on board - recommend to maintain NPO (sips/meds) and advance ad ginger (no NGT or surgical intervention) - continue LR at 125 cc/hr -Zofran PRN for nausea -Pain control with Tylenol 1000 mg IV q8h PRN, morphine 1 mg IV q4h PRN for breakthrough (2) COVID: Plan: Asymptomatic. Patient unvaccinated and unsure if she has had COVID-19 before. - monitor for symptoms (3) Uncontrolled type 2 diabetes mellitus: Plan: A1c 7.5 as of 08/22/2022. -Hold home metformin, NPH -Lantus 5u BID, ISS while hospitalized (4) Hyperlipidemia: Plan: -Continue home rosuvastatin (5) HTN (hypertension): Plan: -Holding home thiazide for now -Monitor BP, stable at this time (6) Hypothyroidism: Plan: -Continue home levothyroxine (7) CAD (coronary artery disease): Plan: -Continue aspirin, rosuvastatin Plan FENGI: NPO except medications, sips; LR @125cc/hr Code status: Full DVT ppx: SCDs Isolation: airborne (COVID) Dispo: Medical/surgical Admission and Anticipated Discharge Date Admission Date: August 21, 2022 Results & Data Results & Data ([facility]) Vital Signs (Past 12 Hours) Vital Signs Temp Pulse Resp BP Pulse Ox Pulse Ox O2 Del Method 08/22/22 22:35 94 08/22/22 22:35 Room Air 08/22/22 21:20 36.8 C 80 18 132/80 94 Room Air O2 Del Method 08/22/22 22:35 Room Air 08/22/22 22:35 08/22/22 21:20 (1) HTN (hypertension) Hypertension type: unspecified Qualified Code(s): I10 - Essential (primary) hypertension (2) CAD (coronary artery disease) Coronary Disease-Associated Artery/Lesion type: [place] artery [place] vs. transplanted heart: [place] heart Associated angina: without angina Qualified Code(s): I25.10 - Atherosclerotic heart disease of [place] coronary artery without angina pectoris
[2022-08-23 08:13] LABS: BUN Creatinine Ratio 15.3 (10-20); Calcium 8.6 mg/dl (8.5-10.1); Creatinine Clr Calc Pharmacy 133.9 ml/min; Est GFR (Non-African American) 89.8 ml/min; Magnesium 1.8 mg/dl (1.7-2.4); Potassium 3.7 mmol/L (3.5-5.1)
[2022-08-23] MEDS: INSULIN ASPART PER UNIT SC SCH ×2 (08:57→12:53)
[2022-08-23] MEDS: HEPARIN SOD 5,000 UNIT/0.5 ML VIAL SQ SCH (08:58)
[2022-08-23] MEDS: LANTUS PER UNIT CHARGE SQ SCH (08:58)
--- NOTE | 2022-08-23 10:27 | Discharge Summary ---
Date of Service August 23, 2022 Admission HPI Per Admitting Provider 61 yo F with PMH IDDM2, morbid obesity, HTN, HLD, hypothyroidism, CAD, GERD, previous hernia repair presenting with abdominal pain. Pt reports onset of generalized diffuse abdominal pain on 08/20 AM- 04/06, sharp, radiation to back, associated with nausea and 3x NBNB emesis. States enema yesterday and today has not produced BM, unable to recall last BM but thinks it may have been on 08/18. Tylenol does not provide any pain relief. Since pain onset, pt has only been drinking liquids which she is tolerating well. Believes she may have passed small flatus earlier today. Pt arrived to ED hemodynamically stable. WBC 12.6, Na 133, glucose 203. EKG unremarkable. CXR with stable cardiomegaly, mild pulmonary vascular congestion. CTAP with multiple dilated gas and fluid-filled loops of small bowel with transition point likely located within LLQ. Pt given Zofran in ED. Admission Exam Per Admitting Provider General: Well-appearing, no acute distress HEENT: Mildly dry mucous membranes, anicteric sclerae, no JVD b/l, no lymphadenopathy CV: RRR, normal S1 and S2, no murmurs noted, trace non-pitting edema of b/l LE Resp: CTAB, unlabored respirations Abd: soft, slight distension, mild tympany to percussion, mild tenderness to palpation along epigastrium, higher-pitched bowel sounds, no guarding or rebound MSK: normal bulk and tone of b/l UE and LE Neuro: AOx3, no focal motor or sensory deficits Skin: warm, dry, no rashes Principal Diagnosis SBO Discharge Exam Constitutional WD/WN, vitals as above + morbidly obese Eyes PERRL, conjunctivae normal, anicteric sclerae ENMT external ear and nose normal, oropharynx normal Neck trachea midline, no thyromegaly Respiratory normal respiratory effort, lungs clear to auscultation Cardiovascular Rate/Rhythm: regular rate and regular rhythm Gastrointestinal (Abdomen) Inspection/Auscultation: abdomen normal to inspection Percussion/Palpation: abdomen soft; abdomen nontender Skin no rashes, warm and dry Discharge Data Allergies Allergy/AdvReac Type Severity Reaction Status Date / Time pollen extracts Allergy Unknown Unknown Verified 08/21/22 20:27 tomato Allergy Unknown Unknown Verified 08/21/22 20:27 No Known Drug Allergies Allergy nkda Verified 08/21/22 20:27 Dust Allergy Unknown Unknown Uncoded 08/21/22 20:27 Consultations 08/21/22 20:00 ED Decision to Admit Stat 08/21/22 20:35 Consult General Surgery Stat Ordered Studies 08/21/22 18:20 CT abd pelvis IV con only Stat Hospital Course (1) Small bowel obstruction: (1) Small bowel obstruction: CT A/P with evidence of small bowel obstruction with transition point in LLQ. SBO is likely due to post-surgical adhesions in this patient with multiple abdominal surgeries in the past. N/V/abdominal pain resolved since coming to hospital, without need for PRN pain/anti-emetic meds Surgery consulted - recommend to maintain NPO (sips/meds) and advance ad ginger (no NGT or surgical intervention). Started IVF. Patient resumed PO diet 08/22 tolerated well, had 2 bowel movements no abd pain. SBO considered resolved. Patient recommended to stay on low fiber diet at this time. May consider stool softeners. (2) COVID: Asymptomatic. Patient unvaccinated and unsure if she has had COVID-19 before. (3) Uncontrolled type 2 diabetes mellitus: A1c 7.5 as of 08/22/2022. May resume home regime upon discharge (4) Hyperlipidemia: -Continue home rosuvastatin (5) HTN (hypertension): -Holding home thiazide for now, may resume at home (6) Hypothyroidism: -Continue home levothyroxine (7) CAD (coronary artery disease): -Continue aspirin, rosuvastatin (2) COVID: (3) Uncontrolled type 2 diabetes mellitus: (4) Hyperlipidemia: (5) HTN (hypertension): (6) Hypothyroidism: (7) CAD (coronary artery disease): Total Time Total Time Spent Total Time Spent (In Minutes): see attending attestation Discharge Plan Discharge Items Patient Disposition: Home - Self-Care Reason For Visit: SMALL BOWEL OBSTRUCTION Discharge Diagnosis: SBO Activity: Resume your previous activity Non-emergency contact: Primary Care Provider Call non-emergency contact if: you have any medication questions and your symptoms worsen Follow-up/Referrals: Stella Tineo MD [Primary Care Provider] - 09/03/22 3:45 pm (APPT WITH AILYN TRAN) Diet: Regular Addtl Attending Provider Instructions: You were admitted to the hospital for a small bowel obstruction, meaning that your intestines got clogged and food was not moving down properly. You were treated with bowel rest and IV fluids, and your symptoms have improved. At home, please consider taking stool softeners to prevent recurrence of your bowel obstruction. A discharge summary will be sent to your primary care physician to ensure continuity of care. Please bring this discharge summary with you to your next office appointment so that your provider can review it at that time. Follow-up appointments: Make a follow-up appointment with your PCP within the next week. It is very important that you follow up with them shortly after discharge from the hospital. Keep all your follow-up appointments as already scheduled. If you cannot make an appointment, notify your provider. Medications: Your medication list has been reviewed and reconciled upon discharge to ensure accuracy and continuity of care. An updated list of all your medications is included with your hospital discharge paperwork. Please review this list closely, and make note of any changes. Take your medications as instructed; do not skip a dose of your medicines. Make sure all of your doctors know every medicine you are taking (including xucq-bgb-[id number] medicines, vitamins, and supplements). Call your primary care provider before taking any new medicines (including gaut-lvy-renubyw medicines, vitamins, and supplements), because some of these may interact with your current medications, or may make your symptoms worse. Tell your primary care provider if you cannot afford your medications. CONTACT YOUR PRIMARY CARE PROVIDER if you experience any of the following: Abdominal pain Nausea, vomitting Difficulty following your treatment plan, or difficulty taking medications CALL 911 OR GO TO THE EMERGENCY DEPARTMENT if you experience any of the following: Sudden, severe abdominal pain or nausea/vomiting Severe chest pain, or chest pain that radiates (moves) to your jaw or arm Sudden, severe shortness of breath or difficulty breathing Thank you for allowing us to participate in your care. Pending Studies at Discharge: No Stand-Alone Forms: My [facility] WIB, Smoking Cessation Medications and DC Order Prescriptions: Continued celecoxib [Celebrex] 100 mg capsule 100 mg PO BID Qty: 60 5RF rosuvastatin 20 mg tablet 20 mg PO DAILY Qty: 90 1RF metformin 500 mg tablet 1,000 mg PO BID Qty: 120 1RF furosemide 20 mg tablet 20 mg PO QAM PRN (Reason: edema) Qty: 30 2RF hydrochlorothiazide 12.5 mg tablet 12.5 mg PO DAILY Qty: 30 5RF Novolin N NPH U-100 Insulin 100 unit/mL suspension 10 - 15 unit subcut BID Rx Instructions: 10 units with morning coffee and 15 units with supper nitroglycerin 0.4 mg tablet, sublingual 0.4 mg sublingual Q5M PRN (Reason: chest pain) Qty: 30 0RF Rx Instructions: NEEDED FOR CHEST PAIN : ONE TABLET UNDER THE TONGUE EVERY 5 MINUTES, UP TO 3 DOSES. aspirin [Aspir-81] 81 mg Tablet,Delayed Release (Dr/Ec) 81 mg PO DAILY levothyroxine 125 mcg tablet 125 mcg PO DAILY Discharge Orders: Discharge Order (Routine); Ordered 08/23/22 Ordered By: Merly Thomason/Other Patient Handouts: Small Bowel Obstruction, Managing Type 2 Diabetes Admission Data Admit Date/Time: 08/21/22 21:09 Attending Provider: Castillo Ventura Admit Provider: Earl Chi Primary Care Provider: Stella Tineo Other Providers: Keyur Balderas ; Raffaele Trevino Other Interventions: Discharge Summary Assessment (RN) Last Done: 08/23/22 14:01 Supervising Physician Co-Signing Physician Notes I personally examined the patient and verified all martinez points of history and exam, discussed case, and agree with decision making with Dr Ramirez Tolerating clears and full's. By the time I see her would like to go homediscussed with nursing and advance to regular diet (she later tolerated this well and was able to go home.) vitals noted nad heent nc at mmm abd soft nd nt no guarding/rebound SBO - improving. Tolerating diet, safe for home. Outpatient follow-up DVT proph - heparin SQ Resident Activity Tracking Resident Involvement: Resident Care Provided Care Provided: Adult Hospital Medicine
--- NOTE | 2022-08-23 11:06 | Surgery Progress Note ---
Date of Service August 23, 2022 Assessment & Plan (1) Small bowel obstruction: Plan: Patient feeling improvement in symptoms. Denies abdominal pain/n/v Passing flatus and small BM this AM Tolerated clear and full liquid diet Has been advanced to low fiber for lunch If tolerates okay for discharge from our standpoint Admission and Anticipated Discharge Date Admission Date: August 21, 2022 Subjective Patient reports feeling well. No more abdominal pain. Denies nausea/vomiting. Passing flatus and had a small BM this morning. Denies any covid symptoms Physical Exam Physical Exam: awake/alert, no distress Gastrointestinal (Abdomen): Inspection/Auscultation: abdomen not distended Percussion/Palpation: abdomen soft; abdomen nontender Results & Data ([facility]) Vital Signs (Past 12 Hours) Vital Signs Temp Pulse Resp BP Pulse Ox O2 Del Method 08/23/22 08:00 Room Air 08/23/22 07:33 36.6 C 73 18 133/76 93 PG Care Time/CCT Total # of Minutes Spent Total Time Spent with Patient: Total time spent is greater than 50% in coordination of care (as documented) at patient's floor/unit and/or counseling patient: Coding Level of Care Code 28427 Subseq Hosp Care Lvl 2 Diagnoses Small bowel obstruction K56.609
--- NOTE | 2022-08-23 20:10 | Billing Data ---
Date of Service August 23, 2022 Coding Level of Care Code D/C DAY MANAGEMENT <30 MINS
== END 2022-08-23 15:30 | disposition home or self-care (01) | DRG 388 ==
LOC: ED 16:12 → SUATTDRO 21:09 → 3W 21:09